=== PATIENT | male | born 1980 | race Two or more races ===

== ENCOUNTER 2016-09-07 06:27 | Emergency (ER) | payer OTHER ==
[~2016-09-07] VITALS: Ht 177.8 cm; Wt 97.5 kg
--- NOTE | 2016-09-07 06:40 | NUR ---
TO BED 8 A 36 YO MALE [facility] FOR ANXIETY ATTACK SYMPTOMS SUCH HYPERVENTILATING, TINGLING SENSATION ON THE FINGERTIPS, RESTLESSNESS, INCREASED HR, N/V. PATIENT IS AAOX3, REPORTING SHELLY FLANK PAIN. SATURATING 99% ON ROOM AIR. ENCOURAGED DEEP GOOD BREATHINGS. INITIATED RELAXATION/COMFORT MEASURES. AWAINTING NOW FOR ER MD CAIN.
[2016-09-07] MEDS ORDERED: IV SET PRIMARY 1 EA INFUS.SET MC ONE (07:05)
[2016-09-07] MEDS ORDERED: ONDANSETRON HCL/PF 4 MG/2 ML VIAL ONE (07:05)
[2016-09-07] MEDS ORDERED: IV NS 0.9% 1,000 ML ONE ×2 (07:05→08:07)
[2016-09-07] MEDS: IV NS 0.9% 1,000 ML BAG IV ONE ×2 (07:17→08:15)
[2016-09-07] MEDS: ONDANSETRON HCL/PF 4 MG/2 ML VIAL IVP ONE (07:18)
--- NOTE | 2016-09-07 07:18 | NUR ---
MEDICATED PATIENT ORDERED BY DR ALFONSO.
[2016-09-07 07:21] LABS: BASOPHILS % (AUTO) 0.4 % (0.0-2.0); EOSINOPHILS # (AUTO) 0.1 /CMM (0.0-0.7); EOSINOPHILS % (AUTO) 1.6 % (0.0-6.0); HEMATOCRIT 52 % (39-51); HEMOGLOBIN 17.5 g/dL (13.5-17.5); LYMPHOCYTES # (AUTO) 2.3 /CMM (0.8-4.8); LYMPHOCYTES % (AUTO) 26.6 % (20.0-44.0); MEAN CORPUSCULAR HEMOGLOBIN 31 PG (26.0-33.0); MEAN CORPUSCULAR HGB CONC 34 g/dl (31.0-36.0); MEAN CORPUSCULAR VOLUME 92 fL (80-96); MONOCYTES # (AUTO) 0.6 /CMM (0.1-1.30); MONOCYTES % (AUTO) 7.5 % (2.0-12.0); NEUTROPHILS # (AUTO) 5.5 /CMM (1.8-8.9); NEUTROPHILS % (AUTO) 63.9 % (43.0-81.0); PLATELET COUNT (AUTO) 209 /CMM (150-450); RDW COEFFICIENT OF VARIATION 13.5 (11.5-15.0); RED BLOOD CELL COUNT(AUTO) 5.67 MIL/uL (4.5-6.0); WHITE BLOOD COUNT (AUTO) 8.6 K/uL (4.3-11.0)
--- NOTE | 2016-09-07 07:29 | NUR ---
ENDORSED CARE TO KEN HARRIS.
--- NOTE | 2016-09-07 07:30 | NUR ---
RECEIVED REPORT FROM [facility] FOR [facility]
[2016-09-07 07:38] LABS: INR 0.92 (0.87-1.13); PROTHROMBIN TIME 9.8 SECS (9.5-12.7)
[2016-09-07] MEDS ORDERED: LORAZEPAM INJ 2 MG/ML VIAL ONE (07:43)
[2016-09-07 07:51] LABS: CALCIUM, SERUM 9.8 mg/dL (8.5-10.1); CARBON DIOXIDE 24 mmol/L (21-32); CHLORIDE 103 mmol/L (98-107); CREATININE 1.4 mg/dL (0.6-1.3); GFR 57 mL/min (>60); GLUCOSE 121 mg/dL (74-106); POTASSIUM 3.8 mmol/L (3.5-5.1); SODIUM SERUM 143 mmol/L (136-145); UREA NITROGEN, BLOOD 11 mg/dL (7-18)
[2016-09-07 07:56] LABS: ALANINE AMINOTRANSFERASE 180 U/L (12-78); ALBUMIN 3.3 g/dL (3.4-5.0); ALKALINE PHOSPHATASE 101 U/L (46-116); ASPARTATE AMINOTRANSFERASE 151 U/L (15-37); BILIRUBIN,DIRECT 0.1 mg/dL (0.0-0.2); BILIRUBIN,TOTAL 0.4 mg/dL (0.2-1.0); LIPASE 223 U/L (73-393); TOTAL PROTEIN, SERUM 7.6 g/dL (6.4-8.2)
[2016-09-07] MEDS: LORAZEPAM INJ 2 MG/ML VIAL IV ONE (07:56)
--- NOTE | 2016-09-07 07:57 | NUR ---
URINE SAMPLE COLLECTED SENT TO LAB
[2016-09-07 07:59] LABS: TROPONIN I < 0.017 ng/mL (0.00-0.056)
[2016-09-07 08:29] LABS: APPEARANCE,URINE CLEAR (CLEAR); BILIRUBIN,URINE NEGATIVE (NEGATIVE); BLOOD, URINE 3+ Ery/uL (NEGATIVE); COLOR,URINE YELLOW (YELLOW); KETONES,URINE NEGATIVE (NEGATIVE); LEUKOCYTE ESTERASE ,URINE NEGATIVE (NEGATIVE); NITRITE, URINE NEGATIVE (NEGATIVE); PH,URINE 6.5 (5.0-8.0); PROTEIN,URINE 3+ mg/dl (NEGATIVE); UGLUCOSE NEGATIVE (NEGATIVE); UROBILINOGEN,URINE 0.2 EU/dL (0.2)
[2016-09-07 08:32] LABS: ADD URINE CULTURE NO; BACTERIA,URINE Rare /HPF (None Seen); RBC,URINE 30-50 /HPF (0-2); SQUAMOUS EPITHELIAL CELL,UR Few /HPF (None Seen); WBC,URINE 0-3 /HPF (0-3)
--- NOTE | 2016-09-07 09:06 | NUR ---
IV removed. Catheter intact and site benign. Pressure and 4x4 applied to site. No bleeding noted.
--- NOTE | 2016-09-07 09:07 | NUR ---
PT. VERBALIZED UNDERSTANDING OF AFTERCARE INSTRUCTIONS.Patient discharged to [facility] in stable condition. Written and verbal after care instructions given. Patient verbalizes understanding of instruction.
[2016-09-07 09:08] VITALS: BP 155/84
== END 2016-09-07 09:11 | disposition home or self-care (01) ==
LOC: ER 06:31
DX: R10.9 Unspecified abdominal pain (principal); R11.2 Nausea with vomiting, unspecified; F10.129 Alcohol abuse with intoxication, unspecified; R31.29 Other microscopic hematuria; E86.0 Dehydration; R74.0 Nonspecific elevation of levels of transaminase and lactic acid dehydrogenase [LDH]; I10 Essential (primary) hypertension; E11.9 Type 2 diabetes mellitus without complications; F17.200 Nicotine dependence, unspecified, uncomplicated
CPT/HCPCS: 36415; 71010-TC; 80048-TC; 80076-TC; 81000-TC; 82962-TC; 83690-TC; 84484-TC; 85025-TC; 85730-TC; A4606; J2060; J2405; J7030; Z7610